=== PATIENT | female | born 1990 | race Caucasian/White ===

== ENCOUNTER → 2023-02-28 07:05 | Outpatient (REF) | payer OTHER, SELFPAY | LOC: PNTC 07:05 | PROVIDERS: ATTENDING PHYSICIAN Obstetrics & Gynecology | DX: O09.529 Supervision of elderly multigravida, unspecified trimester (principal) | CPT/HCPCS: 36415; 76801; 76813 ==

== ENCOUNTER → 2023-07-23 07:09 | Outpatient (REF) | payer OTHER, SELFPAY | LOC: PNTC 07:09 | PROVIDERS: ATTENDING PHYSICIAN Obstetrics & Gynecology | DX: O09.529 Supervision of elderly multigravida, unspecified trimester (principal) | CPT/HCPCS: 76816 ==